=== PATIENT | female | born 1985 | race Caucasian/White ===

== ENCOUNTER 2018-05-31 16:56 | Inpatient (IN) | payer OTHER ==
[2018-05-31] MEDS ORDERED: LIDOCAINE HCL 1% PRESERVATIVE FREE - 30ML VIAL ONE (17:32)
[2018-05-31 17:50] VITALS: BMI 30.4
[2018-05-31] MEDS ORDERED: BISACODYL 10 MG SUPP.RECT RC PRN (17:57)
[2018-05-31] MEDS ORDERED: METHYLERGONOVINE MALEATE 0.2 MG/1 ML AMP IM PRN (17:57)
[2018-05-31] MEDS ORDERED: BENZOCAINE 20% 57 GM BOTTLE TP PRN (17:57)
[2018-05-31] MEDS ORDERED: WITCH HAZEL 50% (TUCKS) 40 PAD/JAR PAD TP PRN (17:57)
[2018-05-31] MEDS ORDERED: BENZOCAINE 28 GM HEMORRHOIDAL OINTMENT TP PRN (17:57)
[2018-05-31] MEDS ORDERED: DEXTROSE 5%-LACTATED RINGERS 1,000 ML IV SCH (18:00)
[2018-05-31] MEDS ORDERED: OXYTOCIN 20 UNITS in 0.9% NS 20 UNIT/1,000 ML INFUS.BAG IV SCH (18:00)
--- NOTE | 2018-05-31 18:02 | PN ---
Delivery - Delivery Vaginal Delivery: Spontaneous Type of Anesthesia: Local Episiotomy/Laceration: 2nd degree EBL (cc): 300 Delivery, Single - Stages of Labor Date 1st Stage Initiatied: 05/31/18 Time 1st Stage Initiated: 15:50 Date 2nd Stage Initiated: 05/31/18 Time 2nd Stage Initiated: 17:00 Date of Delivery: 05/31/18 Time of Delivery: 17:08 Time Placenta Delivered: 17:15 - Condition of Senior Behavioral Scientist/Touch Up Carver Present: [place]: Mc Bailon Gender: Female Weight: 6 lb 11 oz Position: Right, OA Total Hours ROM (Hrs/Mins): 7mins - 1 Minute Total Score: 9 5 Minutes Total Score: 9 - Tow Feeding Plan Initial Plan: Exclusive throughout hospitalization Remarks - Remarks Remarks: Normal spontaneous vaginal delivery of a live over second degree laceration. Nose / Oropharynx suctioned @ perineum. Cord clamped and cut. Placenta expelled spontaneously intact. Laceration repaired with 2.0 chromic.
--- NOTE | 2018-05-31 18:07 | HP ---
Past Medical History - Admission Chief Complaint: Labor pain History of Present Illness: 32 yo @ 39 weeks gestation, EDC 06/06/18 admitted for labor pain. Upon admission she was fully dilated. History Source: Patient Limitations to Obtaining History: No Limitations - Past Medical History ...: 2 ...Para: 1 ...Term: 1 ...: 0 ...Spon : 0 ...Induced : 0 ...Multiple Gestation: 0 ...LMP: 08/30/17 ... Weeks Gestation by Dates: 39.1 ...EDC by Dates: 06/06/18 ...EDC by Sono: 06/06/18 - Past Surgical History Past Surgical History: Yes: None Hx Myomectomy: No Hx Transabdominal Cerclage: No - Smoking History Smoking history: Never smoked Have you smoked in the past 12 months: No - Alcohol/Substance Use Hx Alcohol Use: No History of Substance Use: reports: None - Social History Usual Living Arrangement: Yes: With Significant Other History of Recent Travel: No Home Medications - Allergies Allergies/Adverse Reactions: Allergies Allergy/AdvReac Type Severity Reaction Status Date / Time No Known Allergies Allergy Verified 05/31/18 17:36 - Home Medications Home Medications: Ambulatory Orders Vit 108/Iron/Folic AC [ One Tablet] 1 each PO DAILY 05/31/18 Family Disease History - Family Disease History Family History: Unremarkable Review of Systems - Review of Systems Constitutional: reports: No Symptoms Eyes: reports: No Symptoms HENT: reports: No Symptoms Neck: reports: No Symptoms Cardiovascular: reports: No Symptoms Respiratory: reports: No Symptoms Gastrointestinal: reports: No Symptoms Genitourinary: reports: Pain Breasts: reports: No Symptoms Reported Musculoskeletal: reports: No Symptoms Integumentary: reports: No Symptoms Neurological: reports: No Symptoms Endocrine: reports: No Symptoms Hematology/Lymphatic: reports: No Symptoms Psychiatric: reports: No Symptoms Pain Intensity: 8 Physical Exam - Maternity Vital Signs: Vital Signs Temperature 98.2 F 05/31/18 17:00 Pulse Rate 87 05/31/18 17:00 Respiratory Rate 18 05/31/18 17:00 Blood Pressure 149/71 05/31/18 17:00 O2 Sat by Pulse Oximetry (%) Constitutional: Yes: Well Nourished Eyes: Yes: Conjunctiva Clear HENT: Yes: Atraumatic Neck: Yes: Supple Cardiovascular: Yes: Regular Rate and Rhythm Lungs: Clear to auscultation Breast(s): Yes: WNL - Abdominal Exam/OB Number of Fetuses: Single Presentation: Vertex Contractions: Yes - Vaginal Exam/OB Station: 0 - Physical Exam ...Motor Strength: WNL Psychiatric: Yes: Alert, Oriented Problem List - Problems (1) Pain during labor Code(s): O99.89 - OTH DISEASES AND CONDITIONS COMPL PREG/CHLDBRTH; R52 - PAIN, UNSPECIFIED Assessment/Plan Active labor Admit to L&D Anticipate
[2018-05-31 18:20] LABS: BASO % 0.2 % (0-2.0); EOS % 0.3 % (0-4.5); HEMATOCRIT 34.1 % (32.4-45.2); HEMOGLOBIN 11.4 GM/dL (10.7-15.3); LYMPH % 9.9 % (8-40); MCH 29.9 pg (25.7-33.7); MCHC 33.5 g/dl (32.0-36.0); MEAN CELL VOLUME 89.1 fl (80-96); MEAN PLT VOLUME 8.1 fl (7.5-11.1); MONO % 5.8 % (3.8-10.2); NEUT % 83.8 % (42.8-82.8); PLATELET COUNT 240 K/MM3 (134-434); RBC 3.83 M/mm3 (3.60-5.2); RDW 15.2 % (11.6-15.6); WHITE BLOOD COUNT 12.5 K/mm3 (4.0-10.0)
[2018-05-31 18:34] LABS: INR 1.03 (0.83-1.09); PROTHROMBIN TIME (PATIENT) 11.6 SEC (9.7-13.0)
[2018-05-31] MEDS ORDERED: OXYTOCIN 20 UNITS in 0.9% NS 20 UNIT/1,000 ML INFUS.BAG IV ONE (18:36)
[2018-05-31] MEDS ORDERED: IBUPROFEN 600 MG TABLET (FP) PO ONE (19:13)
[2018-05-31] MEDS ORDERED: ACETAMINOPHEN 325 MG TABLET (FP) ONE (19:13)
[2018-05-31] MEDS: IBUPROFEN 600 MG TABLET (FP) PO PRN (19:15)
[2018-05-31] MEDS: ACETAMINOPHEN 325 MG TABLET (FP) PO PRN (19:15)
[2018-05-31 19:27] LABS: ANION GAP 12 (8-16); BLOOD UREA NITROGEN 9 mg/dL (7-18); CALCIUM 8.6 mg/dL (8.5-10.1); CHLORIDE 113 mmol/L (98-107); CO2 18 mmol/L (21-32); CREATININE 0.5 mg/dL (0.55-1.02); GLUCOSE,RANDOM 110 mg/dL (74-106); POTASSIUM 3.6 mmol/L (3.5-5.1); SODIUM 143 mmol/L (136-145)
[2018-05-31] MEDS: FERROUS SO4 325 MG TABLET (FP) PO SCH (22:13)
[2018-06-01 07:57] LABS: BASO % 0.4 % (0-2.0); EOS % 0.5 % (0-4.5); HEMATOCRIT 33.8 % (32.4-45.2); HEMOGLOBIN 11.4 GM/dL (10.7-15.3); LYMPH % 13.5 % (8-40); MCH 30.1 pg (25.7-33.7); MCHC 33.7 g/dl (32.0-36.0); MEAN CELL VOLUME 89.1 fl (80-96); MONO % 4.9 % (3.8-10.2); NEUT % 80.7 % (42.8-82.8); PLATELET COUNT 228 K/MM3 (134-434); RBC 3.79 M/mm3 (3.60-5.2); RDW 14.8 % (11.6-15.6); WHITE BLOOD COUNT 14.9 K/mm3 (4.0-10.0)
--- NOTE | 2018-06-01 08:19 | PN ---
Post Progress Note - Subjective Subjective: 32 yo Para 2 status post vaginal delivery, seen and evaluated. Doing well. Post Day: 1 Type of Delivery: Vital Signs: Vital Signs Temperature 98.5 F 06/01/18 07:10 Pulse Rate 71 06/01/18 07:10 Respiratory Rate 20 06/01/18 07:10 Blood Pressure 119/77 06/01/18 07:10 O2 Sat by Pulse Oximetry (%) 99 05/31/18 18:43 Breast Exam: Yes: Soft Uterus: Yes: Fundus Firm Abdomen/GI: Yes: Abdomen soft, Tolerating PO Lochia: Yes: Rubra Lochia, amount: Moderate Extremities: Yes: Calves non-tender Perineum: Yes: Laceration (Healing) Activity: Ambulating - Labs Labs: CBC WBC 14.9 K/mm3 (4.0-10.0) H 06/01/18 06:00 RBC 3.79 M/mm3 (3.60-5.2) 06/01/18 06:00 Hgb 11.4 GM/dL (10.7-15.3) 06/01/18 06:00 Hct 33.8 % (32.4-45.2) 06/01/18 06:00 MCV 89.1 fl (80-96) 06/01/18 06:00 MCH 30.1 pg (25.7-33.7) 06/01/18 06:00 MCHC 33.7 g/dl (32.0-36.0) 06/01/18 06:00 RDW 14.8 % (11.6-15.6) 06/01/18 06:00 Plt Count 228 K/MM3 (134-434) 06/01/18 06:00 MPV 8.0 fl (7.5-11.1) 06/01/18 06:00 Absolute Neuts (auto) 12.0 # 06/01/18 06:00 Neutrophils % 80.7 % (42.8-82.8) 06/01/18 06:00 Lymphocytes % 13.5 % (8-40) D 06/01/18 06:00 Monocytes % 4.9 % (3.8-10.2) 06/01/18 06:00 Eosinophils % 0.5 % (0-4.5) 06/01/18 06:00 Basophils % 0.4 % (0-2.0) 06/01/18 06:00 Nucleated RBC % 0 % (0-0) 06/01/18 06:00 Problem List - Problems (1) Pain during labor Code(s): O99.89 - OTH DISEASES AND CONDITIONS COMPL PREG/CHLDBRTH; R52 - PAIN, UNSPECIFIED Assessment/Plan Status post normal vaginal delivery Stable Continue routine care
[2018-06-01] MEDS: FERROUS SO4 325 MG TABLET (FP) PO SCH ×2 (09:02→21:43)
[2018-06-01] MEDS: PRENATAL VITAMINS W/ FOLIC ACID TABLET (FP) PO SCH (09:02)
[2018-06-01] MEDS: IBUPROFEN 600 MG TABLET (FP) PO PRN ×3 (09:08→21:45)
[2018-06-01] MEDS: ACETAMINOPHEN 325 MG TABLET (FP) PO PRN ×3 (09:09→21:43)
[2018-06-01] MEDS ORDERED: DIPHTH,PERTUSS(ACELL),TET 0.5 ML DISP.SYRIN IM ONE (10:00)
[2018-06-01] MEDS ORDERED: SENNOSIDES/DOCUSATE COMBO (SENNA PLUS) TABLET (UD) PO PRN (22:00)
[2018-06-02 07:48] VITALS: BP 123/73; PULSE 71; TEMP 98.1
[2018-06-02] MEDS: FERROUS SO4 325 MG TABLET (FP) PO SCH (09:13)
[2018-06-02] MEDS: PRENATAL VITAMINS W/ FOLIC ACID TABLET (FP) PO SCH (09:13)
[2018-06-02] MEDS: IBUPROFEN 600 MG TABLET (FP) PO PRN (09:18)
[2018-06-02] MEDS: ACETAMINOPHEN 325 MG TABLET (FP) PO PRN (09:18)
--- NOTE | 2018-06-02 11:50 | DS ---
Physical Exam-DATA ANALYTICS ARCHITECT Vital Signs: Vital Signs Temperature 98.1 F 06/02/18 07:20 Pulse Rate 71 06/02/18 07:20 Respiratory Rate 20 06/02/18 07:20 Blood Pressure 123/73 06/02/18 07:20 O2 Sat by Pulse Oximetry (%) 99 05/31/18 18:43 Constitutional: Yes: Well Nourished Eyes: Yes: Conjunctiva Clear HENT: Yes: Atraumatic Neck: Yes: Supple Cardiovascular: Yes: Regular Rate and Rhythm Respiratory: Yes: Regular Gastrointestinal: Yes: Normal Bowel Sounds External Genitalia: Yes: Normal Vaginal Exam: Yes: Normal Cervix: Yes: Normal Uterus: Yes: Firm ....Post : Yes: Uterus firm, Moderate lochia serosa Neurological: Yes: Alert, Oriented ...Motor Strength: WNL Psychiatric: Yes: Alert, Oriented Labs: CBC, BMP 06/01/18 06:00 05/31/18 18:00 Delivery - Delivery Vaginal Delivery: Spontaneous Type of Anesthesia: Local Episiotomy/Laceration: 2nd degree EBL (cc): 300 Delivery, Single - Stages of Labor Date 1st Stage Initiatied: 05/31/18 Time 1st Stage Initiated: 15:50 Date 2nd Stage Initiated: 05/31/18 Time 2nd Stage Initiated: 17:00 Date of Delivery: 05/31/18 Time of Delivery: 17:08 Time Placenta Delivered: 17:15 - Condition of Infant Topographical Surveyor/Detail Maker And Fitter Present: [place]: Mc Bailon Infant Gender: Female Weight: 6 lb 11 oz Position: Right, OA Total Hours ROM (Hrs/Mins): 7mins - 1 Minute Total Score: 9 5 Minutes Total Score: 9 - [place] Feeding Plan Initial Plan: Exclusive throughout hospitalization Discharge Summary Reason For Visit: ADMIT LABOR Current Active Problems Pain during labor (Acute) Status post normal delivery (Acute) Procedures: Principal: Normal vaginal delivery Hospital Course: Routine care Condition: Good - Instructions Diet, Activity, Other Instructions: Regular diet No douching, no sexual intercourse x 6 weeks F/U in clinic in 6 weeks Disposition: HOME - Home Medications Comprehensive Discharge Medication List: Ambulatory Orders Vit 108/Iron/Folic AC [ One Tablet] 1 each PO DAILY 05/31/18
== END 2018-06-02 12:50 | disposition home or self-care (01) | DRG 560 ==
LOC: JLDR 16:56 → J3W 19:50
PROVIDERS: ADMIT Obstetrics & Gynecology; ATTEND Obstetrics & Gynecology
PROC: 0KQM0ZZ Repair Perineum Muscle, Open Approach (ICD-10-PCS; principal; 2018-05-31)
PROC: 10E0XZZ Delivery of Products of Conception, External Approach (ICD-10-PCS; 2018-05-31)
DX: O70.1 Second degree perineal laceration during delivery (principal); Z3A.39 39 weeks gestation of pregnancy; Z37.0 Single live birth
CPT/HCPCS: 36415; 59409; 80048; 85025; 85610; 85730; 86593; 86850; 86900; 86901; 90715